=== PATIENT | male | born 2000 | race Caucasian/White ===

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

== ENCOUNTER 2023-08-10 21:42 | Emergency (ER) | payer MEDICAID ==
[~2023-08-10] VITALS: Ht 177.8 cm; Wt 75.0 kg
[2023-08-10 22:40] VITALS: O2SAT 99
[2023-08-11] MEDS: KETOROLAC 15MG/ML VIAL IM ONE (01:00)
[2023-08-11] MEDS: KETOROLAC 15MG/ML VIAL IM NR (04:35)
[2023-08-11 07:02] VITALS: BP 121/70; PULSE 96; RESP 20; TEMP 97.8
== END 2023-08-11 07:02 | disposition home or self-care (01) ==
LOC: ER 21:42
DX: M54.2 Cervicalgia (principal)
CPT/HCPCS: 99285; 72125; 96372; J1885